=== PATIENT | female | born 1975 | race Caucasian/White ===

== ENCOUNTER 2016-09-13 20:57 | Emergency (ER) | payer OTHER ==
[~2016-09-13] VITALS: Ht 167.6 cm; Wt 90.0 kg
[~2016-09-13 20:57] MED LIST: DIAZ5TAB PO; HYDR-4003 PO
[2016-09-13 21:01] VITALS: BP 118/75; PULSE 86; RESP 18; O2SAT 97
[2016-09-13 21:47] LABS: BASOPHILS % (AUTO) 0.2 % (0-3); EOSINOPHILS % (AUTO) 1.3 % (0-5); MONOCYTES % (AUTO) 7.4 % (4-12); Mean Corpuscular Hemoglobin 27.3 pg (27.0-35.0); Mean Corpuscular Volume 84.4 fL (81-100); NEUTROPHILS % (AUTO) 67.9 % (40-74); Platelet Count 306 bil/L (150-400)
[2016-09-13 22:12] LABS: Magnesium 1.8 mg/dL (1.6-2.6)
--- NOTE | 2016-09-13 22:16 | ED.REPORT ---
HPI-Abd Pain F Under 42 Date of Service Sep 13, 2016 ED Provider: Dr. Parvez Zuniga M.D. A healthy 40 year old female presents to the ED with dysuria onset four days ago. Associated symptoms include hematuria, bilateral flank pain (L > R), urinary frequency, chills, and nausea. She denies fever or vomiting. The patient has had similar symptoms with a UTI in the past. She has not had antibiotics recently. Nursing Notes Stated Complaint: POSS UTI/KIDNEY PAIN Chief Complaint: Female Abdominal Pain Nursing Notes Reviewed: Yes Allergies: Coded Allergies: Sulfa (Sulfonamide Antibiotics) (Verified Allergy, Severe, swelling, hives , 02/06/14) Uncoded Allergies: ENVIRONMENTAL (Allergy, Unknown, UNKNOWN (WEEDS, GRASS, DUST), 02/06/14) FOODS (Allergy, Unknown, UNKNOWN (WHEY, EGGS, BANANAS), 02/06/14) Scheduled Cephalexin (Keflex) 500 Mg Capsule 500 MG PO QID Scheduled PRN Diazepam (Valium) 5 Mg Tablet 5 MG PO TID PRN PRN For Spasm Hydrocodone-Acetaminophen 5-325 mg (Hydrocodone-Acetaminophen 5-325 mg) 1 Each Tablet 1 TABLET PO Q4H PRN PRN For Pain Ondansetron ODT (Ondansetron ODT) 8 Mg Tab.rapdis 8 MG PO QID PRN PRN For Nausea Phenazopyridine (Phenazopyridine) 200 Mg Tablet 200 MG PO TID PRN PRN dysuria General Time Seen by MD: 22:15 Chief Complaint Dysuria Hx Obtained From: Patient Arrived By: Walk-in Sudden in Onset?: Yes Onset Occurred: 4 days ago Symptom Duration: Since onset Location: : Flank left: Flank right Quality: Painful Severity: Current: Moderate Severity: Maximum: Moderate Associated with: Reports: Chills, Hematuria, Nausea, Denies: Fever Pertinent Negative: Relieved by nothing Context Related History: Reports: Urinary tract infection Recent Healthcare: No recent doctor visit Similar Sx Previous: Yes Past Medical History Past Medical History None reported Past Surgical History None reported Family History noncontributory Smoking History Never Smoker Ambulatory Status Independent Review of Systems Constitutional: Reports: Chills, Denies: Fever Respiratory: Denies: Non-productive cough, Shortness of breath GI: Reports: Nausea, Denies: Vomiting Female: Reports: Dysuria, Flank pain (Bilateral, L>R), Hematuria, Urinary frequency Complete sys rev & neg: except as marked. Physical Exam Initial Vital Signs Vital Signs (First) Date Time Temp Pulse Resp B/P Pulse Ox O2 Delivery O2 Flow Rate FiO2 09/13/16 21:01 36.6 86 18 118/75 97 Initial VS: Reviewed Head / Eyes: Atraumatic, Normocephalic ENT: Conjunctiva normal, No scleral icterus Neck: Supple, Full range of motion Skin: Warm, Dry Neurologic: Alert, Oriented, Nonfocal Psychiatric: Mood/affect normal, Behavior normal, Normal thought content General/Constitutional: Awake, Alert Respiratory / Chest: Breath sounds NL, Breath sounds = bilat, No respiratory distress Cardiovascular: Heart rate NL, Regular rhythm, Heart sounds NL Abdomen: Soft, Non-tender Back: Inspection NL, No CVA tenderness Interpretation & Diagnostics URINE DIPSTICK: 1.020 sp gravity 5 pH Positive Nitrite Trace Protein Normal Glucose Normal Urobilinogen Trace Blood Otherwise Negative Lab Results Interpretation Result Diagram: 09/13/16213709/13/162137 Test 09/13/16 21:38 09/13/16 23:06 White Blood Count 8.5th/mm3 (3.8-10.1) Red Blood Count 4.17mil/mm3 (3.90-5.20) Hemoglobin 11.4g/dL (12.0-15.6) Hematocrit 35.2% (35.0-46.0) Mean Corpuscular Volume 84.4fL (81-100) Mean Corpuscular Hemoglobin 27.3pg (27.0-35.0) Mean Corpuscular Hemoglobin Concent 32.4% (32.0-37.0) Red Cell Distribution Width 13.9% (12.3-15.4) Platelet Count 306bil/L (150-400) Neutrophils (%) (Auto) 67.9% (40-74) Lymphocytes (%) (Auto) 23.1% (14-46) Monocytes (%) (Auto) 7.4% (4-12) Eosinophils (%) (Auto) 1.3% (0-5) Basophils (%) (Auto) 0.2% (0-3) Sodium Level 140mEq/L (134-144) Potassium Level 3.6mEq/L (3.5-5.2) Chloride Level 101mEq/L (97-108) Carbon Dioxide Level 26mmol/L (18-29) Blood Urea Nitrogen 10mg/dL (6-20) Creatinine 0.73mg/dL (0.57-1.00) Estimat Glomerular Filtration Rate 128mL/min (>59) Glucose Level 113mg/dL (60-99) Calcium Level 9.2mg/dL (8.5-10.1) Magnesium Level 1.8mg/dL (1.6-2.6) Total Bilirubin 0.2mg/dL (0.0-1.2) Aspartate Amino Transf (AST/SGOT) 14U/L (0-50) Alanine Aminotransferase (ALT/SGPT) 16U/L (0-32) Alkaline Phosphatase 46U/L (25-150) Total Protein 7.3g/dL (6.4-8.4) Albumin 4.1g/dL (3.4-5.0) Lipase 28U/L (13-60) Hold Carr Top Tube Received (Received) Urine Color Yellow (YELLOW) Urine Appearance Cloudy (CLEAR,HAZY) Urine pH 6.0 (5.0-8.0) Urine Specific [place] 1.030 (1.003-1.035) Urine Protein 100mg/dL (NEG,TRACE) Urine Glucose (UA) Negativemg/dL (NEGATIVE) Urine Ketones Negativemg/dL (NEGATIVE) Urine Occult Blood Moderate (NEGATIVE) Urine Nitrite Positive (NEGATIVE) Urine Bilirubin Negative (NEGATIVE) Urine Urobilinogen Normalmg/dL (NORMAL) Urine Leukocyte Esterase Moderate (NEGATIVE) Urine RBC 3-10/hpf (0-2) Urine WBC >50/hpf (0-5) Urine Epithelial Cells Occasional/hpf (NONE-MOD) Urine Crystals None seen (NONE SEEN) Urine Bacteria Moderate/hpf (NONE-FEW) Urine Hyaline Casts None/lpf (NONE) Urine Granular Casts None seen (NONE SEEN) Urine Waxy Casts None seen (NONE SEEN) Urine Red Blood Cell Casts None seen (NONE SEEN) Urine White Blood Cell Casts None seen (NONE SEEN) Urine Mucus Present (None Seen) Urine Trichomonas None seen (NONE SEEN) Urine Yeast None (NONE SEEN) Urinalysis Comment None Urine Culture Reflexed Indicated Re-Eval/Medical Decision Med Decision/Clinical Course Med Decision/Clinical Course: 40-year-old with prior UTIs presents with UTI symptoms, and has UTI by UA. Home with Pyridium, Keflex, and routine after care instructions. Re-Evaluation/Progress : Time of Eval: 22:30 Patient Status: Condition improved Re-Evaluation/Progress Note: Discussed with patient lab results, diagnosis, and plan for discharge. Follow-up and return to the ER instructions given. Patient agrees with plan for care and all questions were addressed. Counseled Regarding: Diagnosis, Lab results, Need for follow-up, When/why to return to ED Discharge & Departure Primary Impression: Urinary tract infection Urinary tract infection type: acute cystitis Hematuria presence: without hematuria Qualified Code: N30.00 - Acute cystitis without hematuria Disposition: Home Discharge Condition All VS Reviewed: Yes Condition: Improved Patient Instructions: Urinary Tract Infection in Women (ED) Additional Instructions: Zofran up to four times daily if needed for nausea. Drink plenty of fluids and maintain your hydration. Pyridium three times daily as needed for comfort. It will make your urine a lurid orange. Keflex four times daily for ten days. Follow-up with your doctor in the office. Return if any immediate issues. Referrals: [facility] (PCP) [place] Attestation Portions of this note were transcribed by Renu Martinez. Dr. Efrain Leonard, personally performed the history, physical exam, and medical decision-making; I reviewed and confirmed the accuracy of the information in the transcribed note. Signed by: Shayan Dominguez, 09/14/2016, 01:35 copies to: [facility] Parvez Zuniga MD Sep 13, 2016 22:16 RENU MARTINEZ Sep 13, 2016 22:31 Portions of this note were transcribed by Renu Martinez. Dr. Efrain Leonard, personally performed the history, physical exam, and medical decision-making; I reviewed and confirmed the accuracy of the information in the transcribed note. copies to: [facility] Parvez Zuniga MD Sep 13, 2016 22:16 RENU MARTINEZ Sep 13, 2016 22:31
[2016-09-13] MEDS ORDERED: _Ondansetron ODT 4 mg Tablet PO PRN (22:30)
[2016-09-13] MEDS ORDERED: Phenazopyridine 97.5 mg Tablet PO ONE (22:30)
[2016-09-13] MEDS ORDERED: PHEN-777 PO (22:37)
[2016-09-13] MEDS ORDERED: CEPH-512 PO (22:37)
[2016-09-13] MEDS ORDERED: ONDA8TAB10 PO (22:37)
[2016-09-13 23:15] LABS: APPEARANCE,URINE CLOUDY (CLEAR,HAZY); COLOR,URINE YELLOW (YELLOW); OCCULT BLOOD,URINE MODERATE (NEGATIVE); UROBILINOGEN,URINE NORMAL (NORMAL)
== END 2016-09-13 22:45 | disposition home or self-care (01) ==
LOC: SED 20:57
DX: N39.0 Urinary tract infection, site not specified (principal); B96.20 Unspecified Escherichia coli [E. coli] as the cause of diseases classified elsewhere; Z88.2 Allergy status to sulfonamides